=== PATIENT | male | born 1960 | race Caucasian/White ===

== ENCOUNTER → 2019-09-16 | Day surgery (SDC) | payer MEDICAID ==
[~2019-09-16] MED LIST: 0.9 % SODIUM CHLORIDE 10 ML VIAL IVP ONE; ACETAMINOPHEN 1,000 MG/100 ML BTL IVPB ONE; BUPIVACAINE 0.25% W/EPI MPF 30ML VIAL SQ ONE; CEFAZOLIN 2 Gram 2 GM/50 ML BAG IVPB ONE; DEXAMETHASONE 4 MG/ML 1ML VIAL IVP ONE; FAMOTIDINE 20MG TABLET PO ONE; KETOROLAC 30 MG/ML VIAL IVP ONE; LIDOCAINE 2% MDV (20MG/ML) 20ML VIAL IV ONE; MECLIZINE 25 MG TABLET PO ONE; METOCLOPRAMIDE 10 MG TABLET PO ONE; MIDAZOLAM HCL 2MG/2ML VIAL IV ONE; ONDANSETRON HCL IV 4 MG/2 ML VIAL IVP ONE; PROPOFOL 10 MG/ML VIAL IV ONE; RINGERS SOLUTION,LACTATED 1,000 ML IV ONE; ROPIVACAINE HCL (NAROPIN) /PF 5MG/ML 20ML VIAL IV ONE
--- NOTE | 2019-09-17 06:01 | Operative Note ---
DATE OF SURGERY: 09/16/2019 SURGEON: Freddie Galaviz DO PREOPERATIVE DIAGNOSIS: Ventral hernia x2. POSTOPERATIVE DIAGNOSIS: Ventral hernia x2, incarcerated hernia. OPERATION: Open ventral herniorrhaphy x2. INDICATIONS: The patient is a 59-year-old male who presented with pain and bulging in his abdomen. He had 2 small ventral hernias. One superior to the navel and the other one superior and to the left of this. We did discuss repair. Risks, benefits, and alternatives were discussed. Risks include bleeding, infection, acute or chronic pain, recurrence. He understood this fully. Apparently, he has a history of about, what he states, 10-11 inguinal hernia repairs. He does have some chronic groin pain. He had no recurrent inguinal hernia that I could detect. PROCEDURE: After consent was signed and questions answered, he was taken to the operating room and placed in a supine position. General anesthesia was administered per the department of anesthesia. The patient's abdomen was prepped and draped in the usual fashion. Starting with the hernia just above the navel, this area was anesthetized with a total of 5 mL of 0.25% Sensorcaine with epinephrine. A 2.5 cm incision was made. This was carried down through the subcutaneous tissue. The hernia sac was encountered and dissected free from the surrounding tissue. Clean circumferential fascial edges were obtained. The hernia sac was then amputated and passed off the field. This hernia was very small measuring about 4 mm. This was closed primarily with 0 Ethibond with 2 interrupted sutures. This wound was closed with 3-0 and 4-0 Vicryl. Attention was now turned to the superolateral hernia where an identical procedure was done here. The patient had a similar hernia measuring about 4 mm. This again was closed with Ethibond. The skin was closed with 3-0 and 4-0 Vicryl as well. Steri-Strips were applied. He was taken to the recovery room in stable condition. FINDINGS ON SURGERY: Ventral hernia x2 containing incarcerated preperitoneal fat, repaired as above. MTDD
== END | disposition home or self-care (01) ==
LOC: SUR 07:01
PROVIDERS: ATTEND Surgery
DX: K43.6 Other and unspecified ventral hernia with obstruction, without gangrene (principal); J44.9 Chronic obstructive pulmonary disease, unspecified; J45.909 Unspecified asthma, uncomplicated; K21.9 Gastro-esophageal reflux disease without esophagitis; F17.210 Nicotine dependence, cigarettes, uncomplicated
CPT/HCPCS: 49561 ×2; 00752; 64486; 76942; J1885; J2405; J0690; J2795; J7120